=== PATIENT | male | born 1990 | race Caucasian/White ===

== ENCOUNTER 2017-12-22 07:44 | Emergency (ER) | payer MEDICAID ==
[~2017-12-22] VITALS: Ht 188 cm; Wt 72.6 kg
--- NOTE | 2017-12-22 07:51 | NUR ---
PT IS NOT IN ED WAITING ROOM.
--- NOTE | 2017-12-22 07:59 | NUR ---
PT IS NOT IN ED WAITING ROOM.
[2017-12-22 08:24] VITALS: BP 117/67
--- NOTE | 2017-12-22 08:47 | NUR ---
WRIST SPLINT APPLIED TO R WRIST
[2017-12-22] MEDS ORDERED: IBUPROFEN 400 MG TABLET ONE (08:48)
[2017-12-22] MEDS ORDERED: IBUPROFEN 400 MG TABLET PO ONE (09:00)
== END 2017-12-22 09:12 | disposition home or self-care (01) ==
LOC: ER 07:46
DX: G56.31 Lesion of radial nerve, right upper limb (principal); F17.200 Nicotine dependence, unspecified, uncomplicated; Z60.2 Problems related to living alone
CPT/HCPCS: 29125; 99283; A4606; Z7610

== ENCOUNTER 2019-02-12 09:03 | Emergency (ER) | payer MEDICAID, OTHER ==
[~2019-02-12] VITALS: Ht 190.5 cm; Wt 77.1 kg
[2019-02-12 09:10] VITALS: BP 119/74
[2019-02-12] MEDS ORDERED: HYDROCODONE/APAP 5/325MG 1 EACH TABLET ONE (09:33)
[2019-02-12] MEDS: HYDROCODONE/APAP 5/325MG 1 EACH TABLET PO ONE (09:37)
--- NOTE | 2019-02-12 09:40 | NUR ---
Patient discharged to home in stable condition. Written and verbal after care instructions given. Patient verbalizes understanding of instruction.
== END 2019-02-12 09:41 | disposition home or self-care (01) ==
LOC: ER 09:03
DX: S02.5XXA Fracture of tooth (traumatic), initial encounter for closed fracture (principal); K04.7 Periapical abscess without sinus; R22.0 Localized swelling, mass and lump, head; F17.200 Nicotine dependence, unspecified, uncomplicated; Z60.2 Problems related to living alone; X58.XXXA Exposure to other specified factors, initial encounter; Y93.89 Activity, other specified; Y92.89 Other specified places as the place of occurrence of the external cause; Y99.8 Other external cause status